=== PATIENT | female | born 1940 | race Caucasian/White ===

== ENCOUNTER → 2019-04-02 | Outpatient (CLI) | payer OTHER ==
[~2019-04-02] MED LIST: ADVAIR; ALBU3IS; ALBU90OI; ALBU90OI61 INH; ALPR.5; CELE200; CEPH500 PO; ELIQUIS5 MG PO; ESCI5; FLUSAL2505 IH; HYDACE10B PO; HYDACE5 PO; HYDACE5325 PO; MONT10T PO; OMEP20ER; OMEP20ER PO; PANT20; PRED20 PO; PROM25 PO; PSEU120ER PO; RANI150 PO; RXHYD5325 PO; SIMV10 PO; SIMV5 PO; SULTRISS PO
== END | disposition home or self-care (01) ==
LOC: LAB 12:30 → LAB SHORT 12:30
DX: R30.0 Dysuria (principal)
CPT/HCPCS: 87086

== ENCOUNTER 2020-01-07 15:28 | Emergency (ER) | payer OTHER ==
[~2020-01-07] VITALS: Ht 152.4 cm; Wt 65.8 kg
[2020-01-07 16:14] LABS: BASOPHILS ABSOLUTE AUTO 0.03 K/mm3 (0.00-0.23); BASOPHILS PERCENT AUTO 1 % (0-2); EOSINOPHILS ABSOLUTE AUTO 0.09 K/mm3 (0.00-0.68); EOSINOPHILS PERCENT AUTO 2 % (0-6); Hematocrit 39.9 % (33.0-51.0); Hemoglobin 12.6 g/dL (11.5-16.0); IMMATURE GRAN PERCENT AUTO 0 % (0-1); LYMPHOCYTES ABSOLUTE AUTO 2.84 K/mm3 (0.84-5.20); LYMPHOCYTES PERCENT AUTO 49 % (21-46); MONOCYTES ABSOLUTE AUTO 0.45 K/mm3 (0.16-1.47); MONOCYTES PERCENT AUTO 8 % (4-13); Mean Corpuscular HGB 29.1 pg (26.0-34.0); Mean Corpuscular HGB Conc 31.6 g/dL (31.5-36.5); Mean Corpuscular Volume 92 fL (80-100); Mean Platelet Volume 10.3 fL (9.1-12.4); NEUTROPHILS ABSOLUTE AUTO 2.34 K/mm3 (1.96-9.15); NEUTROPHILS PERCENT AUTO 41 % (41-73); Platelet Count 210 K/mm3 (150-400); RDW Coefficient Variation 13.6 % (11.7-14.2); RDW Standard Deviation 46.6 fL (35.1-46.3); Red Blood Cell Count 4.33 M/mm3 (3.80-5.20); White Blood Cell Count 5.75 K/mm3 (4.00-11.30)
[2020-01-07 16:36] LABS: Alanine Aminotransfer (ALT/SGP 14 U/L (12-78); Albumin, Blood 3.8 g/dL (3.4-5.0); Albumin/Globulin Ratio 1.1 (0.8-1.8); Alk Phos 55 U/L (50-136); Anion Gap 5 mmol/L (6-16); Aspartate Aminotrans (AST/SGOT 18 U/L (12-37); Bilirubin, Total 0.5 mg/dL (0.1-1.0); Blood Urea Nitrogen 13 mg/dL (8-24); Bun/Creatinine Ratio 17.2 (12.0-20.0); CO2, Blood 28 mmol/L (21-32); Chloride, Blood 106 mmol/L (98-108); Creatinine, Blood 0.76 mg/dL (0.40-1.00); Globulin, Blood 3.4 g/dL (2.2-4.0); Glomerular Filtration Rate >60 (60-); Glucose, Blood 91 mg/dL (70-99); Potassium, Blood 3.9 mmol/L (3.5-5.5); Sodium, Blood 139 mmol/L (136-145); Total Protein, Blood 7.2 g/dL (6.4-8.2); Troponin I <0.015 ng/mL (0.000-0.040)
[2020-01-07 18:04] LABS: Free Thyroxine 1.1 ng/dL (0.70-1.60); Magnesium, Blood 2.1 mg/dL (1.6-2.4); Thyroid Stimulating Hormone 1.07 uIU/mL (0.360-4.800)
== END 2020-01-07 18:41 | disposition home or self-care (01) ==
LOC: ER 15:28
PROVIDERS: Emergency Medicine; Physician Assistant
DX: I49.3 Ventricular premature depolarization (principal); I48.91 Unspecified atrial fibrillation; J45.909 Unspecified asthma, uncomplicated; F32.9 Major depressive disorder, single episode, unspecified; Z79.899 Other long term (current) drug therapy; Z79.01 Long term (current) use of anticoagulants
CPT/HCPCS: 36415; 71046; 80053; 83735; 84439; 84443; 84484; 85025; 93005; 93010; 99284-25

== ENCOUNTER 2020-03-15 06:33 | Emergency (ER) | payer OTHER ==
[~2020-03-15] VITALS: Ht 167.6 cm; Wt 70.3 kg
[2020-03-15 07:24] LABS: BASOPHILS ABSOLUTE AUTO 0.03 K/mm3 (0.00-0.23); BASOPHILS PERCENT AUTO 0 % (0-2); EOSINOPHILS ABSOLUTE AUTO 0.08 K/mm3 (0.00-0.68); EOSINOPHILS PERCENT AUTO 1 % (0-6); Hematocrit 38.3 % (33.0-51.0); Hemoglobin 12.2 g/dL (11.5-16.0); IMMATURE GRAN ABSOLUTE AUTO 0.02 K/mm3 (0.00-0.10); IMMATURE GRAN PERCENT AUTO 0 % (0-1); LYMPHOCYTES ABSOLUTE AUTO 2.11 K/mm3 (0.84-5.20); LYMPHOCYTES PERCENT AUTO 22 % (21-46); MONOCYTES ABSOLUTE AUTO 0.74 K/mm3 (0.16-1.47); MONOCYTES PERCENT AUTO 8 % (4-13); Mean Corpuscular HGB 29.1 pg (26.0-34.0); Mean Corpuscular HGB Conc 31.9 g/dL (31.5-36.5); Mean Corpuscular Volume 91 fL (80-100); Mean Platelet Volume 9.7 fL (9.1-12.4); NEUTROPHILS ABSOLUTE AUTO 6.43 K/mm3 (1.96-9.15); NEUTROPHILS PERCENT AUTO 68 % (41-73); Platelet Count 234 K/mm3 (150-400); RDW Coefficient Variation 13.9 % (11.7-14.2); RDW Standard Deviation 47.3 fL (35.1-46.3); Red Blood Cell Count 4.19 M/mm3 (3.80-5.20); White Blood Cell Count 9.41 K/mm3 (4.00-11.30)
[2020-03-15 07:38] LABS: Alanine Aminotransfer (ALT/SGP 16 U/L (12-78); Albumin, Blood 3.5 g/dL (3.4-5.0); Albumin/Globulin Ratio 1.1 (0.8-1.8); Alk Phos 50 U/L (50-136); Anion Gap 8 mmol/L (6-16); Aspartate Aminotrans (AST/SGOT 14 U/L (12-37); Bilirubin, Total 0.4 mg/dL (0.1-1.0); Blood Urea Nitrogen 17 mg/dL (8-24); Bun/Creatinine Ratio 26.9 (12.0-20.0); CO2, Blood 25 mmol/L (21-32); Calcium, Blood 8.9 mg/dL (8.5-10.1); Chloride, Blood 109 mmol/L (98-108); Creatinine, Blood 0.63 mg/dL (0.40-1.00); Globulin, Blood 3.3 g/dL (2.2-4.0); Glomerular Filtration Rate >60 (60-); Glucose, Blood 101 mg/dL (70-99); Potassium, Blood 3.6 mmol/L (3.5-5.5); Sodium, Blood 142 mmol/L (136-145); Total Protein, Blood 6.8 g/dL (6.4-8.2); Troponin I <0.015 ng/mL (0.000-0.040)
== END 2020-03-15 11:13 | disposition home or self-care (01) ==
LOC: ER 06:33
PROVIDERS: Emergency Medicine
DX: R07.9 Chest pain, unspecified (principal); Z79.899 Other long term (current) drug therapy; Z79.01 Long term (current) use of anticoagulants
CPT/HCPCS: 36415; 71046; 80053; 83690; 83880; 84484; 85025; 93005; 93010; 99285-25; A9270

== ENCOUNTER → 2020-05-26 | Outpatient (CLI) | payer OTHER | LOC: LAB SHORT 16:29 → LAB 16:29 → LAB FUT 05-26 15:45 | DX: R35.0 Frequency of micturition (principal) | CPT/HCPCS: 81001; 87086 ==

== ENCOUNTER → 2020-08-19 | Outpatient (CLI) | payer OTHER ==
[2020-08-19 15:14] LABS: BASOPHILS ABSOLUTE AUTO 0.02 K/mm3 (0.00-0.23); BASOPHILS PERCENT AUTO 0 % (0-2); EOSINOPHILS PERCENT AUTO 2 % (0-6); Hematocrit 35.1 % (33.0-51.0); IMMATURE GRAN ABSOLUTE AUTO 0.01 K/mm3 (0.00-0.10); IMMATURE GRAN PERCENT AUTO 0 % (0-1); LYMPHOCYTES ABSOLUTE AUTO 2.26 K/mm3 (0.84-5.20); LYMPHOCYTES PERCENT AUTO 40 % (21-46); MONOCYTES ABSOLUTE AUTO 0.49 K/mm3 (0.16-1.47); MONOCYTES PERCENT AUTO 9 % (4-13); Mean Corpuscular HGB 29.3 pg (26.0-34.0); Mean Corpuscular HGB Conc 31.3 g/dL (31.5-36.5); Mean Corpuscular Volume 94 fL (80-100); Mean Platelet Volume 10.7 fL (9.1-12.4); NEUTROPHILS ABSOLUTE AUTO 2.73 K/mm3 (1.96-9.15); NEUTROPHILS PERCENT AUTO 49 % (41-73); Platelet Count 215 K/mm3 (150-400); RDW Coefficient Variation 14.5 % (11.7-14.2); RDW Standard Deviation 49.6 fL (35.1-46.3); Red Blood Cell Count 3.75 M/mm3 (3.80-5.20); White Blood Cell Count 5.61 K/mm3 (4.00-11.30)
[2020-08-19 15:47] LABS: Alanine Aminotransfer (ALT/SGP 21 U/L (12-78); Albumin, Blood 3.9 g/dL (3.4-5.0); Albumin/Globulin Ratio 1.3 (0.8-1.8); Alk Phos 57 U/L (50-136); Anion Gap 6 mmol/L (6-16); Aspartate Aminotrans (AST/SGOT 22 U/L (12-37); Bilirubin, Total 0.3 mg/dL (0.1-1.0); Blood Urea Nitrogen 19 mg/dL (8-24); Bun/Creatinine Ratio 24.1 (12.0-20.0); CO2, Blood 26 mmol/L (21-32); Calcium, Blood 8.8 mg/dL (8.5-10.1); Chloride, Blood 108 mmol/L (98-108); Creatinine, Blood 0.79 mg/dL (0.40-1.00); Globulin, Blood 3.1 g/dL (2.2-4.0); Glomerular Filtration Rate >60 (60-); Glucose, Blood 113 mg/dL (70-99); Potassium, Blood 4.1 mmol/L (3.5-5.5); Sodium, Blood 140 mmol/L (136-145)
== END | disposition home or self-care (01) ==
LOC: LAB SHORT 11:00 → LAB 11:00
PROVIDERS: Nurse Practitioner Family
DX: R10.9 Unspecified abdominal pain (principal)
CPT/HCPCS: 80053; 85025

== ENCOUNTER → 2020-09-21 | Outpatient (CLI) | payer OTHER ==
[2020-09-21 19:38] LABS: U Amphetamine Screen Not Detected; U Barbituate Screen Not Detected; U Benzodiazapine Screen Not Detected; U Buprenorphine Screen Not Detected; U Cannabinoids Screen Not Detected; U Cocaine Screen Not Detected; U Methadone Screen Not Detected; U Methamphetamine Screen Not Detected; U Opiates Screen DETECTED; U Oxycodone Screen DETECTED; U Phencyclidine Screen Not Detected; U Propoxyphene Screen Not Detected
== END | disposition home or self-care (01) ==
LOC: LAB SHORT 15:00 → LAB 15:00
PROVIDERS: Nurse Practitioner Family
DX: F11.20 Opioid dependence, uncomplicated (principal)

== ENCOUNTER → 2020-09-28 | Outpatient (CLI) | payer OTHER ==
[2020-09-28 17:09] LABS: U Amphetamine Screen Not Detected; U Barbituate Screen Not Detected; U Benzodiazapine Screen Not Detected; U Buprenorphine Screen Not Detected; U Cannabinoids Screen Not Detected; U Cocaine Screen Not Detected; U Methadone Screen Not Detected; U Methamphetamine Screen Not Detected; U Opiates Screen DETECTED; U Oxycodone Screen Not Detected; U Phencyclidine Screen Not Detected; U Propoxyphene Screen Not Detected
== END | disposition home or self-care (01) ==
LOC: LAB SHORT 15:41 → LAB 15:41 → LAB FUT 09-28 12:45
PROVIDERS: Nurse Practitioner Family
DX: Z51.81 Encounter for therapeutic drug level monitoring (principal); Z79.891 Long term (current) use of opiate analgesic

== ENCOUNTER 2021-03-23 14:49 | Emergency (ER) | payer OTHER ==
[~2021-03-23] VITALS: Ht 157.5 cm; Wt 62.6 kg
[2021-03-23 15:29] LABS: BASOPHILS ABSOLUTE AUTO 0.02 K/mm3 (0.00-0.23); BASOPHILS PERCENT AUTO 1 % (0-2); EOSINOPHILS ABSOLUTE AUTO 0.05 K/mm3 (0.00-0.68); EOSINOPHILS PERCENT AUTO 1 % (0-6); Hematocrit 36.5 % (33.0-51.0); Hemoglobin 11.7 g/dL (11.5-16.0); IMMATURE GRAN ABSOLUTE AUTO 0.01 K/mm3 (0.00-0.10); IMMATURE GRAN PERCENT AUTO 0 % (0-1); LYMPHOCYTES ABSOLUTE AUTO 1.79 K/mm3 (0.84-5.20); LYMPHOCYTES PERCENT AUTO 42 % (21-46); MONOCYTES PERCENT AUTO 7 % (4-13); Mean Corpuscular HGB 29.4 pg (26.0-34.0); Mean Corpuscular HGB Conc 32.1 g/dL (31.5-36.5); Mean Corpuscular Volume 92 fL (80-100); Mean Platelet Volume 9.8 fL (9.1-12.4); NEUTROPHILS ABSOLUTE AUTO 2.12 K/mm3 (1.96-9.15); NEUTROPHILS PERCENT AUTO 49 % (41-73); Platelet Count 196 K/mm3 (150-400); RDW Coefficient Variation 14.3 % (11.7-14.2); RDW Standard Deviation 48.4 fL (35.1-46.3); Red Blood Cell Count 3.98 M/mm3 (3.80-5.20); White Blood Cell Count 4.29 K/mm3 (4.00-11.30)
[2021-03-23 15:57] LABS: Alanine Aminotransfer (ALT/SGP 17 U/L (12-78); Albumin/Globulin Ratio 1.3 (0.8-1.8); Alk Phos 46 U/L (50-136); Anion Gap 4 mmol/L (6-16); Aspartate Aminotrans (AST/SGOT 16 U/L (12-37); Bilirubin, Total 0.4 mg/dL (0.1-1.0); Blood Urea Nitrogen 14 mg/dL (8-24); Bun/Creatinine Ratio 19.5 (12.0-20.0); CO2, Blood 25 mmol/L (21-32); Calcium, Blood 8.9 mg/dL (8.5-10.1); Chloride, Blood 106 mmol/L (98-108); Creatinine, Blood 0.72 mg/dL (0.40-1.00); Glomerular Filtration Rate >60 (60-); Glucose, Blood 100 mg/dL (70-99); Potassium, Blood 3.7 mmol/L (3.5-5.5); Sodium, Blood 135 mmol/L (136-145)
[2021-03-23 17:54] LABS: Source, Urine Voided
[2021-03-23 17:59] LABS: Bilirubin, Urine Neg (Neg); Blood, Urine Neg (Neg); Glucose Qualitative, Urine Neg (Neg); Ketones, Urine 1+ (Neg); Leukocyte Esterase, Urine 1+ (Neg); Nitrite, Urine Neg (Neg); Protein, Urine Neg (Neg); Urobilinogen, Urine NORM (Normal)
[2021-03-23 18:22] LABS: Appearance, Urine Clear (Clear); Color, Urine Pale Yellow (P-Yellow); Red Blood Cells, Urine 0-2 /hpf (0-2)
[2021-03-23 18:23] LABS: Bacteria Few /hpf; Mucus Light (0-Heavy); Squamous Epithelial Cells Few /hpf (Few)
[2021-03-23] MEDS ORDERED: MECL25 PO (19:20)
== END 2021-03-23 19:32 | disposition home or self-care (01) ==
LOC: ER 14:49
PROVIDERS: Emergency Medicine
DX: I48.91 Unspecified atrial fibrillation (principal); J45.909 Unspecified asthma, uncomplicated; E78.5 Hyperlipidemia, unspecified; I10 Essential (primary) hypertension; Z79.899 Other long term (current) drug therapy
CPT/HCPCS: 71045; 80053; 81001; 84484; 85025; 87086; 93005; 93010; 99285-25; A9270

== ENCOUNTER → 2021-05-03 | Outpatient (CLI) | payer OTHER ==
[~2021-05-03] MED LIST changes: +MECL25 PO
[2021-05-03 18:34] LABS: U Amphetamine Screen Not Detected; U Barbituate Screen Not Detected; U Benzodiazapine Screen Not Detected; U Buprenorphine Screen Not Detected; U Cannabinoids Screen Not Detected; U Cocaine Screen Not Detected; U Methadone Screen Not Detected; U Methamphetamine Screen Not Detected; U Opiates Screen DETECTED; U Oxycodone Screen DETECTED; U Phencyclidine Screen Not Detected; U Propoxyphene Screen Not Detected
== END | disposition home or self-care (01) ==
LOC: LAB 16:58 → LAB SHORT 16:58
PROVIDERS: Family Medicine
DX: F11.20 Opioid dependence, uncomplicated (principal)

== ENCOUNTER → 2021-12-01 | Outpatient (CLI) | payer OTHER ==
[2021-12-01 16:51] LABS: BASOPHILS ABSOLUTE AUTO 0.03 K/mm3 (0.00-0.23); BASOPHILS PERCENT AUTO 1 % (0-2); EOSINOPHILS ABSOLUTE AUTO 0.07 K/mm3 (0.00-0.68); EOSINOPHILS PERCENT AUTO 2 % (0-6); Hematocrit 35.4 % (33.0-51.0); Hemoglobin 11.2 g/dL (11.5-16.0); IMMATURE GRAN ABSOLUTE AUTO 0.01 K/mm3 (0.00-0.10); IMMATURE GRAN PERCENT AUTO 0 % (0-1); LYMPHOCYTES ABSOLUTE AUTO 2.22 K/mm3 (0.84-5.20); LYMPHOCYTES PERCENT AUTO 46 % (21-46); MONOCYTES ABSOLUTE AUTO 0.42 K/mm3 (0.16-1.47); MONOCYTES PERCENT AUTO 9 % (4-13); Mean Corpuscular HGB 30.4 pg (26.0-34.0); Mean Corpuscular HGB Conc 31.6 g/dL (31.5-36.5); Mean Corpuscular Volume 96 fL (80-100); Mean Platelet Volume 10.7 fL (9.1-12.4); NEUTROPHILS ABSOLUTE AUTO 2.05 K/mm3 (1.96-9.15); NEUTROPHILS PERCENT AUTO 43 % (41-73); Platelet Count 181 K/mm3 (150-400); RDW Coefficient Variation 14.6 % (11.7-14.2); RDW Standard Deviation 49.9 fL (35.1-46.3); Red Blood Cell Count 3.68 M/mm3 (3.80-5.20)
[2021-12-01 17:28] LABS: Alanine Aminotransfer (ALT/SGP 17 U/L (12-78); Albumin, Blood 3.9 g/dL (3.4-5.0); Albumin/Globulin Ratio 1.3 (0.8-1.8); Alk Phos 47 U/L (50-136); Anion Gap 6 mmol/L (6-16); Aspartate Aminotrans (AST/SGOT 18 U/L (12-37); Bilirubin, Total 0.4 mg/dL (0.1-1.0); Blood Urea Nitrogen 12 mg/dL (8-24); Bun/Creatinine Ratio 14.9 (12.0-20.0); CHOL/HDL RATIO 3.1; CO2, Blood 27 mmol/L (21-32); Calcium, Blood 9.1 mg/dL (8.5-10.1); Chloride, Blood 105 mmol/L (98-108); Cholesterol 199 mg/dL (50-200); Creatinine, Blood 0.81 mg/dL (0.40-1.00); Globulin, Blood 2.9 g/dL (2.2-4.0); Glomerular Filtration Rate 72 (60-); Glucose, Blood 93 mg/dL (70-99); HDL Cholesterol 65 mg/dL (>39); LDL/HDL RATIO 1.8; Low Density Lipoprotein Chol 118 mg/dL (0-110); Potassium, Blood 3.7 mmol/L (3.5-5.5); Sodium, Blood 138 mmol/L (136-145); Total Protein, Blood 6.8 g/dL (6.4-8.2); Triglycerides 81 mg/dL (30-160); Very Low Density Lipoprot Chol 16 mg/dL (6-32)
== END ==
LOC: LAB SHORT 12:15 → LAB 12:15
PROVIDERS: Family Medicine
DX: I10 Essential (primary) hypertension (principal); R53.83 Other fatigue; R73.09 Other abnormal glucose
CPT/HCPCS: 80053; 80061; 83036; 84443; 85025

== ENCOUNTER → 2022-03-01 | Outpatient (CLI) | payer OTHER ==
[2022-03-01 15:47] LABS: U Opiates Screen DETECTED
[2022-03-01 15:48] LABS: U Amphetamine Screen Not Detected; U Barbituate Screen Not Detected; U Benzodiazapine Screen Not Detected; U Buprenorphine Screen Not Detected; U Cannabinoids Screen Not Detected; U Cocaine Screen Not Detected; U Methadone Screen Not Detected; U Methamphetamine Screen Not Detected; U Oxycodone Screen DETECTED; U Phencyclidine Screen Not Detected; U Propoxyphene Screen Not Detected
[2022-03-01 15:57] LABS: BASOPHILS ABSOLUTE AUTO 0.03 K/mm3 (0.00-0.23); BASOPHILS PERCENT AUTO 1 % (0-2); EOSINOPHILS ABSOLUTE AUTO 0.04 K/mm3 (0.00-0.68); EOSINOPHILS PERCENT AUTO 1 % (0-6); Hematocrit 34.3 % (33.0-51.0); Hemoglobin 11.6 g/dL (11.5-16.0); IMMATURE GRAN ABSOLUTE AUTO 0.01 K/mm3 (0.00-0.10); IMMATURE GRAN PERCENT AUTO 0 % (0-1); LYMPHOCYTES ABSOLUTE AUTO 1.68 K/mm3 (0.84-5.20); LYMPHOCYTES PERCENT AUTO 35 % (21-46); MONOCYTES ABSOLUTE AUTO 0.36 K/mm3 (0.16-1.47); MONOCYTES PERCENT AUTO 7 % (4-13); Mean Corpuscular HGB 32.6 pg (26.0-34.0); Mean Corpuscular HGB Conc 33.8 g/dL (31.5-36.5); Mean Corpuscular Volume 96 fL (80-100); Mean Platelet Volume 9.8 fL (9.1-12.4); NEUTROPHILS ABSOLUTE AUTO 2.73 K/mm3 (1.96-9.15); NEUTROPHILS PERCENT AUTO 56 % (41-73); Platelet Count 208 K/mm3 (150-400); RDW Coefficient Variation 16.2 % (11.7-14.2); RDW Standard Deviation 47.7 fL (35.1-46.3); Red Blood Cell Count 3.56 M/mm3 (3.80-5.20); White Blood Cell Count 4.85 K/mm3 (4.00-11.30)
== END | disposition home or self-care (01) ==
LOC: LAB SHORT 14:00
PROVIDERS: Physician Assistant
DX: D64.9 Anemia, unspecified (principal); Z79.891 Long term (current) use of opiate analgesic
CPT/HCPCS: 85025

== ENCOUNTER 2023-01-26 12:18 | Inpatient (IN) | payer OTHER ==
[~2023-01-26] VITALS: Ht 152.4 cm; Wt 56.0 kg
[2023-01-26 13:13] LABS: BASOPHILS ABSOLUTE AUTO 0.03 K/mm3 (0.00-0.23); BASOPHILS PERCENT AUTO 0 % (0-2); EOSINOPHILS ABSOLUTE AUTO 0.01 K/mm3 (0.00-0.68); EOSINOPHILS PERCENT AUTO 0 % (0-6); Hematocrit 42.3 % (33.0-51.0); Hemoglobin 14.5 g/dL (11.5-16.0); IMMATURE GRAN PERCENT AUTO 1 % (0-1); LYMPHOCYTES ABSOLUTE AUTO 2.03 K/mm3 (0.84-5.20); LYMPHOCYTES PERCENT AUTO 11 % (21-46); MONOCYTES ABSOLUTE AUTO 1.62 K/mm3 (0.16-1.47); MONOCYTES PERCENT AUTO 9 % (4-13); Mean Corpuscular HGB 30.8 pg (26.0-34.0); Mean Corpuscular HGB Conc 34.3 g/dL (31.5-36.5); Mean Corpuscular Volume 90 fL (80-100); Mean Platelet Volume 9.7 fL (9.1-12.4); NEUTROPHILS ABSOLUTE AUTO 14.58 K/mm3 (1.96-9.15); NEUTROPHILS PERCENT AUTO 79 % (41-73); Platelet Count 279 K/mm3 (150-400); RDW Coefficient Variation 13.2 % (11.7-14.2); RDW Standard Deviation 43.8 fL (35.1-46.3); Red Blood Cell Count 4.71 M/mm3 (3.80-5.20); White Blood Cell Count 18.37 K/mm3 (4.00-11.30)
[2023-01-26 13:35] LABS: Influenza A, PCR NEGATIVE (NEGATIVE); Influenza B, PCR NEGATIVE (NEGATIVE); Resp Syncytial Virus, PCR NEGATIVE (NEGATIVE); SARS-Cov-2 (COVID-19) PCR, MMC NEGATIVE (NEGATIVE)
[2023-01-26 13:42] LABS: Albumin, Blood 3.9 g/dL (3.4-5.0); Bilirubin, Total 0.8 mg/dL (0.1-1.0); Calcium, Blood 9.9 mg/dL (8.5-10.1); Creatinine, Blood 0.66 mg/dL (0.40-1.00); Globulin, Blood 4.1 g/dL (2.2-4.0); Potassium, Blood 3.6 mmol/L (3.5-5.5)
[2023-01-26 14:31] LABS: Source, Urine Clean Catch
[2023-01-26 14:35] LABS: Appearance, Urine Clear (Clear); Bilirubin, Urine Neg (Neg); Blood, Urine 1+ (Neg); Color, Urine Yellow (P-Yellow); Glucose Qualitative, Urine Neg (Neg); Ketones, Urine 4+ (Neg); Leukocyte Esterase, Urine Neg (Neg); Nitrite, Urine Neg (Neg); Protein, Urine 3+ (Neg); Urobilinogen, Urine NORM (Normal)
[2023-01-26 14:54] LABS: Hyaline Casts 0-2 /lpf (0-2); Red Blood Cells, Urine 0-2 /hpf (0-2); White Blood Cells, Urine 0-2 /hpf (0-5)
[2023-01-26 14:55] LABS: Bacteria Few /hpf; Squamous Epithelial Cells Rare /hpf (Few)
[2023-01-26 20:15] VITALS: BP 162/80
[2023-01-26] MEDS ORDERED: ALBU90OI INH (20:27)
[2023-01-26] MEDS ORDERED: IPRAT-ALBUT 0.5-3 ML INH (20:29)
[2023-01-26] MEDS ORDERED: GABA100 PO (20:30)
[2023-01-27 03:42] VITALS: BP 165/82
--- NOTE | 2023-01-27 04:08 | NUR ---
2005: REPORT RECEIVED FROM COAGULANT DIPPER. PT ARRIVED TO THE UNIT VIA BED AT 2005. VSS WITH HTN. PIV X2 TO THE RIGHT ARM. PT IS ABLE TO FOLLOW DIRECTION, A/O SELF, CAN MAKE HER NEEDS KNOWN, NOT USING THE CALL LIGHT AT THIS TIME. WEAKNESS TO THE RIGHT SIDE, SEE EMR. SPEECH I CLEAR. TELEMETRY IN PLACE PER ORDERS. PT IS NPO AT THIS TIME PENDING SPEECH EVALUATION. INCONTINENT OF BOWEL AND BLADDER. PUREWICK IN PLACE WELL BRIEF. FLUIDS RUNNING TO RIGHT FOREARM PIV PER ORDERS. PT IS TOLERATING TREATMENTS WELL. BED ALARM IS ON, CALL LIGHT WITHIN REACH. NEEDS HAVE BEEN MET THROUGHOUT THE SHIFT.
[2023-01-27 06:48] LABS: Hematocrit 37.1 % (33.0-51.0); Hemoglobin 12.3 g/dL (11.5-16.0); Mean Corpuscular HGB 30.2 pg (26.0-34.0); Mean Corpuscular HGB Conc 33.2 g/dL (31.5-36.5); Mean Corpuscular Volume 91 fL (80-100); Mean Platelet Volume 10.5 fL (9.1-12.4); Platelet Count 239 K/mm3 (150-400); RDW Coefficient Variation 13.5 % (11.7-14.2); RDW Standard Deviation 45.3 fL (35.1-46.3); Red Blood Cell Count 4.07 M/mm3 (3.80-5.20)
[2023-01-27 07:26] LABS: Anion Gap 9 mmol/L (6-16); Blood Urea Nitrogen 17 mg/dL (8-24); Bun/Creatinine Ratio 28.8 (12.0-20.0); CHOL/HDL RATIO 2.8; CO2, Blood 21 mmol/L (21-32); Calcium, Blood 8.6 mg/dL (8.5-10.1); Chloride, Blood 112 mmol/L (98-108); Cholesterol 164 mg/dL (50-200); Creatinine, Blood 0.59 mg/dL (0.40-1.00); Glomerular Filtration Rate 89 (60-); Glucose, Blood 113 mg/dL (70-99); HDL Cholesterol 58 mg/dL (>39); LDL/HDL RATIO 1.6; Low Density Lipoprotein Chol 93 mg/dL (0-110); Potassium, Blood 3.4 mmol/L (3.5-5.5); Sodium, Blood 142 mmol/L (136-145); Triglycerides 64 mg/dL (30-160); Very Low Density Lipoprot Chol 12 mg/dL (6-32)
[2023-01-27 07:43] VITALS: BP 168/79
[2023-01-27 15:02] VITALS: BP 178/69
--- NOTE | 2023-01-27 17:54 | NUR ---
SHIFT SUMMARY PT RESTING QUIETLY DURING SHIFT REPORT. LETHARGIC MOST OF TODAY WITH SOME CONFUSION EARLY. PT CLEARING SOME THE DAY WENT ON. SPEECH UNABLE TO DO SWALLOW EVAL THIS AM D/T NAUSEA. PT IMPROVED LATER AND AGREED TO HAVE SPEECH RETURN. PT TOLERATED THIN LIQUIDS, HAVING DIFFICULTY CHEWING D/T NOT HAVING ANY DENTURES. PUREED DIET ORDERED. PT ABLE TO TAKE PO MEDS W/O DIFFICULTY. DR SHEETS IN TO SEE PT A FEW TIMES. PT REQUESTING DNR STATUS. PT WITH R SIDED WEAKNESS TO EXTREMITIES; GROSS MOTOR SKILLS TO R SIDE THIS AM. PT ABLE TO GET PT UP TO EOB WITH THERAPY THIS AFTERNOON. DR SHEETS UPDATED ON VS AND TEMP; SEE CHART. NEW ORDERS PLACED. TYLENOL EFFECTIVE. PT RESTING QUIETLY AT THIS TIME. WAKES EASILY FOR CARE. ABLE TO MAKE NEEDS KNOWN WITH SIMPLE ANSWERS. CALL LT IN REACH.
[2023-01-27 19:26] VITALS: BP 163/82
--- NOTE | 2023-01-28 03:48 | NUR ---
END OF SHIFT SUMMARY PT A&O x1-2, AFEBRILE, PT ON RA. PT's SISTER AND FAMILY MEMBERS AT THE BEDSIDE. PT's SISTER STATED THAT PT USUALLY TAKES NORCO FOR PAIN AT HOME. NEW ORDER FOR PRN HYDROCODONE 10mg/325mg QID. PT C/O SHELTON AND GENERALIZED ALL OVER BODY PAIN, GRIMACING PRESENT. PT ON BEDREST FOR NOW, UNTIL PHYSICAL THERAPY EVALUATES PT. CALL LIGHT WITHIN REACH, WCTM.
[2023-01-28 04:14] VITALS: BP 150/62
[2023-01-28 05:55] LABS: BASOPHILS ABSOLUTE AUTO 0.02 K/mm3 (0.00-0.23); BASOPHILS PERCENT AUTO 0 % (0-2); EOSINOPHILS PERCENT AUTO 0 % (0-6); IMMATURE GRAN ABSOLUTE AUTO 0.06 K/mm3 (0.00-0.10); IMMATURE GRAN PERCENT AUTO 1 % (0-1); LYMPHOCYTES ABSOLUTE AUTO 2.83 K/mm3 (0.84-5.20); LYMPHOCYTES PERCENT AUTO 22 % (21-46); MONOCYTES PERCENT AUTO 12 % (4-13); Mean Corpuscular HGB 30.2 pg (26.0-34.0); Mean Corpuscular HGB Conc 32.4 g/dL (31.5-36.5); Mean Corpuscular Volume 93 fL (80-100); Mean Platelet Volume 10.3 fL (9.1-12.4); NEUTROPHILS ABSOLUTE AUTO 8.29 K/mm3 (1.96-9.15); NEUTROPHILS PERCENT AUTO 65 % (41-73); Platelet Count 213 K/mm3 (150-400); RDW Coefficient Variation 13.7 % (11.7-14.2); RDW Standard Deviation 46.9 fL (35.1-46.3); Red Blood Cell Count 3.97 M/mm3 (3.80-5.20)
[2023-01-28 06:19] LABS: Bun/Creatinine Ratio 36.7 (12.0-20.0); Calcium, Blood 8.7 mg/dL (8.5-10.1); Creatinine, Blood 0.63 mg/dL (0.40-1.00); Potassium, Blood 3.4 mmol/L (3.5-5.5)
[2023-01-28 07:06] VITALS: BP 156/64
--- NOTE | 2023-01-28 09:21 | NUR ---
SB WITH 2.5 PAUSE PER [employer] E[employer]IAN[address] DR GIFFORD MADE AWARE, METOPROLOL DC'D. WILL CONTINUE TO MONITOR
[2023-01-28 10:11] VITALS: BP 138/58
[2023-01-28 17:17] VITALS: BP 158/68
[2023-01-28 19:08] VITALS: BP 129/68
[2023-01-29 03:25] VITALS: BP 142/63
--- NOTE | 2023-01-29 04:49 | NUR ---
SHIFT SUMMARY RUBEN WAS ALERT AND ORIENTED TO SELF, SITUATION, AND PERSON ON ASSESSMENT. FAMILY AT BEDSIDE UNTIL 2300 PT AND FAMILY AGREE THAT THE PT IS EXHAUSTED, AND THAT HER PRIMARY GOAL FOR THE SHIFT IS TO GET A GOOD NIGHT OF SLEEP. PT DENIES PAIN ON ASSESSMENT, AND SLEPT VERY SOUNDLY ALL NIGHT AFTER FAMILY LEFT. PT STILL HAVING SOME EPISODES OF ASYMPTOMATIC BRADYCARDIA INTO THE 40S THAT BOUNCES BACK UP TO 60S/70S RAPIDLY. NO ACUTE EVENTS TONIGHT AND NO NOTED CHANGES IN CONDITION. PT RESTING IN BED AT A LOW POSITON WITH THE CALL LIGHT IN REACH.
[2023-01-29 05:51] LABS: BASOPHILS ABSOLUTE AUTO 0.04 K/mm3 (0.00-0.23); BASOPHILS PERCENT AUTO 0 % (0-2); EOSINOPHILS ABSOLUTE AUTO 0.06 K/mm3 (0.00-0.68); EOSINOPHILS PERCENT AUTO 1 % (0-6); Hematocrit 36.2 % (33.0-51.0); IMMATURE GRAN ABSOLUTE AUTO 0.03 K/mm3 (0.00-0.10); IMMATURE GRAN PERCENT AUTO 0 % (0-1); LYMPHOCYTES ABSOLUTE AUTO 3.05 K/mm3 (0.84-5.20); LYMPHOCYTES PERCENT AUTO 27 % (21-46); MONOCYTES ABSOLUTE AUTO 1.15 K/mm3 (0.16-1.47); MONOCYTES PERCENT AUTO 10 % (4-13); Mean Corpuscular HGB 30.3 pg (26.0-34.0); Mean Corpuscular HGB Conc 33.1 g/dL (31.5-36.5); Mean Corpuscular Volume 91 fL (80-100); Mean Platelet Volume 10.2 fL (9.1-12.4); NEUTROPHILS ABSOLUTE AUTO 7.16 K/mm3 (1.96-9.15); NEUTROPHILS PERCENT AUTO 62 % (41-73); Platelet Count 217 K/mm3 (150-400); RDW Coefficient Variation 13.7 % (11.7-14.2); RDW Standard Deviation 46.5 fL (35.1-46.3); Red Blood Cell Count 3.96 M/mm3 (3.80-5.20); White Blood Cell Count 11.49 K/mm3 (4.00-11.30)
[2023-01-29 06:16] LABS: Bun/Creatinine Ratio 34.6 (12.0-20.0); Calcium, Blood 8.5 mg/dL (8.5-10.1); Creatinine, Blood 0.64 mg/dL (0.40-1.00); Potassium, Blood 3.7 mmol/L (3.5-5.5)
[2023-01-29 07:11] VITALS: BP 158/73
[2023-01-29 14:57] VITALS: BP 163/67
--- NOTE | 2023-01-29 17:12 | NUR ---
SHIFT SUMMARY: Pt remains alert to self and family today. VSS. Back pain managed with current regime. Repositioned frequently. Right sided weakness ongoing. Resp even nonlabored on RA. Appetite remains low on pureed diet. No acute changes this shift. Safety maintained.
[2023-01-29 19:32] VITALS: BP 161/67
[2023-01-30 03:18] VITALS: BP 159/67
--- NOTE | 2023-01-30 04:12 | NUR ---
SHIFT SUMMARY RUBEN WAS ALERT AND ORIENTED X 1-2 ON ASSESSMENT. HER MENTATION APPEARS TO HAVE DECLINED SOME FROM PREVIOUS RAYON TESTER, SHE IS LESS ORIENTED AND MORE FORGETFUL. PT'S DAUGHTERS IN ROOM AT START OF SHIFT, PT COULD ONLY NAME ONE OF THEM. PT HAD SOME ABDOMINAL DISCOMFORT THIS SHIFT, MEDICATED PER EMAR. NO ACUTE EVENTS THIS SHIFT. PT RESTING WELL TONIGHT IN BED AT A LOW POSTION. WILL CONTINUE TO MONITOR.
[2023-01-30 05:56] LABS: BASOPHILS ABSOLUTE AUTO 0.02 K/mm3 (0.00-0.23); BASOPHILS PERCENT AUTO 0 % (0-2); EOSINOPHILS PERCENT AUTO 1 % (0-6); Hematocrit 36.2 % (33.0-51.0); Hemoglobin 11.9 g/dL (11.5-16.0); IMMATURE GRAN ABSOLUTE AUTO 0.04 K/mm3 (0.00-0.10); IMMATURE GRAN PERCENT AUTO 1 % (0-1); LYMPHOCYTES ABSOLUTE AUTO 2.82 K/mm3 (0.84-5.20); LYMPHOCYTES PERCENT AUTO 32 % (21-46); MONOCYTES ABSOLUTE AUTO 0.94 K/mm3 (0.16-1.47); MONOCYTES PERCENT AUTO 11 % (4-13); Mean Corpuscular HGB 30.3 pg (26.0-34.0); Mean Corpuscular HGB Conc 32.9 g/dL (31.5-36.5); Mean Corpuscular Volume 92 fL (80-100); Mean Platelet Volume 10.7 fL (9.1-12.4); NEUTROPHILS ABSOLUTE AUTO 4.92 K/mm3 (1.96-9.15); NEUTROPHILS PERCENT AUTO 56 % (41-73); Platelet Count 217 K/mm3 (150-400); RDW Coefficient Variation 13.5 % (11.7-14.2); RDW Standard Deviation 46.3 fL (35.1-46.3); Red Blood Cell Count 3.93 M/mm3 (3.80-5.20); White Blood Cell Count 8.84 K/mm3 (4.00-11.30)
[2023-01-30 06:20] LABS: Bun/Creatinine Ratio 34.9 (12.0-20.0); Calcium, Blood 8.4 mg/dL (8.5-10.1); Creatinine, Blood 0.57 mg/dL (0.40-1.00); Potassium, Blood 3.8 mmol/L (3.5-5.5)
[2023-01-30 07:47] VITALS: BP 166/71
[2023-01-30 16:29] VITALS: BP 131/61
--- NOTE | 2023-01-30 17:51 | NUR ---
SHIFT SUMMARY- PT ALERT AND ORIENTED TO SELF AND FAMILY. SHE ANSWERS MOST QUESTIONS APPROPRIATELY. MEDICATED FOR PAIN ONCE THIS SHIFT. PT RECIEVED A FULL BED BATH. SHE IS IN BED, CALL LIGHT IN REACH, FAMILY AT THE BEDSIDE NO S&S OF DISTRESS NOTED. PLAN IS TO DC TO SNF WHEN AUTH IS COMPLETED. PT IS INCONTINENT OF BOWEL AND BLADDER, ATTENDS IN PLACE.
[2023-01-30 19:42] VITALS: BP 146/72
[2023-01-31 02:46] VITALS: BP 158/64
[2023-01-31 07:44] VITALS: BP 147/72
[2023-01-31 14:21] VITALS: BP 135/57
--- NOTE | 2023-01-31 17:43 | NUR ---
Met with patient along with her 2 daughters, who are both here visiting from out of town. They wanted to talk about pt's care plan, and both state they want to encourage their mom to work with therapy and get stronger, but don't want to "force her", if it makes her miserable. However, the patient spoke up and states she is happy to work with therapy, she does want to go to SNF, and that she appreciates their encouragement during the hard moments. Information given to daughters regarding the patient portal, and we filled out a POLST with patient, signed by daughter for transport to SNF when insurance approval complete. Will also take pt a lavender satchel as requested by pt and daughters for calming, soothing smell.
[2023-01-31 18:47] VITALS: BP 130/59
[2023-01-31 19:16] VITALS: BP 130/62
--- NOTE | 2023-01-31 20:03 | NUR ---
SHIFT SUMMARY PATIENT WITH ST ELEVATION AFTER LUNCH AND AFTER DINNER WHILE SITTING IN CHAIR. DR GIFFORD NOTIFIED, EKGS DONE AND TROPONINS ORDERED. PATIENT REPORTS CHEST PRESSURE WITH SITTING UP BUT IT DISSAPATES WHEN LAYING DOWN. BED IN LOW POSIITON, CALL LIGHT IN REACH.
[2023-01-31 21:19] VITALS: BP 138/63
[2023-02-01 03:47] VITALS: BP 149/65
--- NOTE | 2023-02-01 05:17 | NUR ---
SHIFT SUMMARY - PT CONTINUES WITH RIGHT SIDED DEFICIT. NO ACUTE CHANGES THROUGHOUT THIS SHIFT. PT DID HAVE ONE EPISODE OF "FEELING LIKE SHE COULDN'T CATCH HER BREATH." VSS - SATS WNL DURING THIS EPISODE. NO FURTHER EPISODES REPORTED THROUGHOUT THE NIGHT. PT DENIED ANY CHEST PAIN, NAUSEA, JAW PAIN, OR NUMBNESS AND TINGLING. PT'S LS ARE CLEAR THROUGHOUT. TROPONIN LAB LEVELS WITHIN NORMAL LIMITS LAST NOC - SEE LAB. PT HAS BEEN SLEEPING THROUGHOUT MOST OF THE NIGHT. CALL LIGHT WITHIN REACH. BED IN LOW POSITION. PT MAKES HER NEEDS KNOWN. BED ALARM ON FOR SAFETY. PAS ON TO BLE. WILL CONTINUE TO MONITOR UNTIL AM SHIFT CHANGE.
[2023-02-01 06:58] VITALS: BP 158/71
--- NOTE | 2023-02-01 08:40 | NUR ---
CALLED DR GIFFORD- PT HR IS AFIB IN THE 80'S CURRENTLY. PT HAS ST ELEVATION WITH ANY ACTIVITY. SHE HAS HAD 2 EPISODES IN THE LAST 16 HOURS OF BRADYCARDIA INTO THE 30'S PER TELE. LAST NIGHT SHE HAD A CO SOB AND WAS PLACED ON O2 TO HELP WITH THAT. SHE IS CURRENTLY ON ROOM AIR. DT ACTIVITY INTOLLERANCE, THERE IS CONCERN THAT THE PT WILL NOT TOLLERATE REHAB. SPOKE TO , CALLED PALLIATIVE CARE AND LEFT A MESSAGE, WAITING FOR A CALL BACK.
[2023-02-01 12:22] LABS: SARS-Cov-2 (COVID-19) PCR, MMC NEGATIVE (NEGATIVE)
[2023-02-01 15:21] VITALS: BP 132/56
--- NOTE | 2023-02-01 16:57 | NUR ---
Spoke with Dr Montoya in [facility] and discussed case. Pt and family mercedes benefit from considering hospice. Pt resting in bed upon arrival. Reviewed plan of care. Engaged in discussion regarding options to consider. Discussed option that is currently in place to D/C to SNF and discussed option to consider hospice. Both of Pt's daughters Adán and Sadie arrive at this time. Brief review with daughters regarding options to consider. Brief and gentle discussion regarding disease process. Offered therapeutic listening and answered questions. Daughters discuss with Pt. Pt and daughter agree that goal is hospice services. Daughter Cinda is familiar with hospice services as she worked for hospice in the past. Discussed hospice agencies to choose from. Pt and family report no preference. Later in the day daughter Cinda arrives to office with Pt's niece in law Ant. Both report due to current condition of Pt's home, the plan with be for Pt to D/C to Pt's nephew Shahbaz and Ant's home with hospice until family can get things organized at Pt's home. They are requesting a Monday D/C with hospice services as Pt's nephew has a 2 day cardiac testing procedure and Monday. Left message wit RN Gallery Assistant Genoveva who will relay this information to RN Gallery Assistant Abbie. Nephew and his wif Ant's phone number: Home- [phone], Cell- [phone]. They live at [address] [place] [address] Palliative Care will remain available
--- NOTE | 2023-02-01 18:25 | NUR ---
SHIFT SUMMARY- PT ALERT AND ORIENTED X 2-3. SHE KNOWS HER FAMILY AND CAN CARRY ON A CONVERSATION BUT HAS DIFFICULTY FINDING WORDS, AND DOES NOT MAKE HER NEEDS KNOWN. THE CHANGE WAS MADE TO DC PLAN TODAY. PLAN IS FOR THE PT TO DISCHARGE HOME ON HOSPICE. THE FAMILY HAS MENTIONED THAT SHE WILL BE IN NEED OF A HOSPITAL BED AND POSSIBLY OTHER DME. CARE MANAGEMENT IS ON BOARD FOR THIS PT. PALLIATIVE CARE WAS IN TO SEE HER AND TALK ABOUT THE CHANGES IN PLAN OF CARE WITH THE FAMILY. FAMILY IS SUPPORTIVE OF THE PT CHOICE. PT IN BED, CALL LIGHT IN REACH NO S&S OF DISTRESS NOTED. PT WOULD LIKE A VISIT FROM SPIRITUAL CARE. CONSULT PLACED. LEFT A MESSAGE FOR TERESA IN SPIRITUAL CARE.
[2023-02-01 19:56] VITALS: BP 123/60
--- NOTE | 2023-02-02 04:49 | NUR ---
SHIFT SUMMARY. NO ACUTE CHANGES. PATIENT A/OX2-3. PER REPORT PATIENT IS TO D/C HOME THIS WEEKEND ON HOSPICE WITH DAUGHTERS. PATIENT HAS RIGHT SIDED DEFICITS-ABLE TO SQUEEZE WITH RIGHT HAND. PATIENT IS PLEASANT, BRIEF CHECKED AND CHANGED FOR INCONTINENCE. PATIENTS BED IS LOCKED IN THE LOWEST POSITION WITH CALL LIGHT IN REACH. NO S/S OF DISTRESS NOTED AT THIS TIME.
[2023-02-02 04:50] VITALS: BP 153/70
[2023-02-02 07:14] VITALS: BP 139/67
--- NOTE | 2023-02-02 11:40 | NUR ---
Spiritual care visit conducted. Spiritual care consult received, clinical notes reviewed and visit conducted, Patient is lying in bed and alert. She tells me about the medical decisions that have led to the plan to d/c home on hospice. She shares her thoughts about , dying and the afterlife. She talks about her family and the plan to go down to [place] and spend some time with her two dtrs. She explains her values, Shinto beleifs and her personal goals. She is tearful at times but also talks very matter of fact about it all at times. We discuss ways to fulfill her desires for connection and depth of relationship. She gets a bit confused when reaching back to memories about her childhood and places and peoples names. I normalize her feelings and fears, reinforce her helpful attitudes and perspectives and provide therapeutic listening and prayer. Patient responded well and showed signs of a greater sense of purpose and increased peace about the afterlife and her rell. I will continue to remain available to patient and family.
--- NOTE | 2023-02-02 14:31 | NUR ---
Pt's daughter Cinda stopped into Palliative Care office this afternoon. She reported feeling overwhelmed, mostly due to the change in plans. The pt was tentatively scheduled for rehab, but she was not a candidate, so she and family elected to discharge home with hospice. Working with [facility] on details to assist with a smooth transition home on Sunday 02/04, with admission to hospice slated for 02/05. Pt's daughter Cinda states she is comfortable taking the patient home, as she is a registered nurse, with hospice experience.
[2023-02-02 15:32] VITALS: BP 137/60
--- NOTE | 2023-02-02 17:30 | NUR ---
SUMMARY- AAOX2-3. BEDREST. PT DID NOT FEEL LIKE GETTING OOB THIS SHIFT. REFUSED WORKING WITH OT. PT'S ABD PAIN WELL CONTROLLED W/ ORDERED EMAR MEDS.
[2023-02-02 20:41] VITALS: BP 130/58
[2023-02-03 02:27] VITALS: BP 125/62
[2023-02-03 07:59] VITALS: BP 134/64
[2023-02-03 15:34] VITALS: BP 114/62
--- NOTE | 2023-02-03 18:45 | NUR ---
SUMMARY- NO ACUTE EVENTS THIS SHIFT. NO CHANGES WITH PT THIS SHIFT. ABD PAIN WELL CONTROLLED WITH NORCO AND MAALOX Q 6. AAOX2-3. BEDREST.
[2023-02-03 19:41] VITALS: BP 127/58
[2023-02-04 02:01] VITALS: BP 141/71
[2023-02-04 07:47] VITALS: BP 138/64
[2023-02-04] MEDS ORDERED: ALMACONE SUSPE355 ML PO (10:41)
[2023-02-04] MEDS ORDERED: AMLO5 PO (10:43)
[2023-02-04] MEDS ORDERED: ASPI81CH PO (10:44)
[2023-02-04] MEDS ORDERED: ATOR20 PO (10:44)
--- NOTE | 2023-02-04 14:42 | NUR ---
DISCHARGE NOTE: DISCHARGE WENT OVER WITH PATIENT. FAMILY NOTIFIED VIA PHONE OF DISCHARGE AND BEING MEDICAL TRANSPORTED HOME. MEDICAL TRANSPORT ARRIVED PROVIDED PATIENT PAPERWORK AND BELONGINGS. PATIENT TRANSPORTED FROM HOSPITAL BED TO [facility]. NO SIGNS OR SYMPTOMS OF DISTRESS WITH DISCHARGE.
== END 2023-02-04 13:20 | disposition hospice, home (50) | DRG 65 ==
LOC: ER 12:18 → MEDS 17:36
PROVIDERS: Family Medicine; Internal Medicine; Nurse Practitioner Acute Care; Physician Assistant; ADMIT Internal Medicine
DX: I63.89 Other cerebral infarction (principal); G81.91 Hemiplegia, unspecified affecting right dominant side; I48.20 Chronic atrial fibrillation, unspecified; J45.909 Unspecified asthma, uncomplicated; E78.5 Hyperlipidemia, unspecified; K21.9 Gastro-esophageal reflux disease without esophagitis; Z66 Do not resuscitate; I27.20 Pulmonary hypertension, unspecified; R00.1 Bradycardia, unspecified; E86.0 Dehydration; R54 Age-related physical debility; M19.90 Unspecified osteoarthritis, unspecified site; E87.6 Hypokalemia; D73.5 Infarction of spleen; F32.A Depression, unspecified; I10 Essential (primary) hypertension; I08.1 Rheumatic disorders of both mitral and tricuspid valves; D72.829 Elevated white blood cell count, unspecified; I44.7 Left bundle-branch block, unspecified; Z79.01 Long term (current) use of anticoagulants; Z79.891 Long term (current) use of opiate analgesic; Z87.11 Personal history of peptic ulcer disease; Z90.710 Acquired absence of both cervix and uterus; Z90.49 Acquired absence of other specified parts of digestive tract; Z98.890 Other specified postprocedural states; Z68.23 Body mass index [BMI] 23.0-23.9, adult
CPT/HCPCS: 0241U; 36415; 51701; 70450; 74177; 80048; 80053; 80061; 81001; 82947; 83036; 83690; 83735; 84484; 85025; 85027; 92507; 92523; 92610; 93005; 93010; 93306; 93880; 93971; 94640; 94664; 94760; 96361-59; 96374-59; 96375-59; 97110; 97112; 97162; 97166; 97530; 99285-25; A9270; J1650; J2405; J3010; J7030; Q9967; U0002